=== PATIENT | male | born 1975 | race African-American/Black ===

== ENCOUNTER 2019-07-12 11:21 | Emergency (ER) | payer BC ==
[~2019-07-12] VITALS: Ht 180.3 cm; Wt 99.8 kg
[2019-07-12] MEDS ORDERED: TETRACAINE HCL 0.5% OPHT DROP 2 ML BOTTLE ONE (11:31)
[2019-07-12] MEDS ORDERED: FLUORESCEIN SODIUM 1 MG STRIP ONE (11:32)
[2019-07-12] MEDS ORDERED: ACETAMINOPHEN ES 500 MG TABLET ONE (11:42)
[2019-07-12] MEDS ORDERED: ACETAMINOPHEN ES 500 MG TABLET PO ONE (11:45)
[2019-07-12] MEDS ORDERED: TETRACAINE HCL 0.5% OPHT DROP 2 ML BOTTLE OP ONE (11:45)
[2019-07-12] MEDS ORDERED: FLUORESCEIN SODIUM 1 MG STRIP OP ONE (11:45)
--- NOTE | 2019-07-12 11:45 | NUR ---
Patient was seen by MD. Visual acuity done. Medication given as ordered. DC and follow up instructions given and explained to patient who states he understands all instructions.
== END 2019-07-12 11:55 | disposition home or self-care (01) ==
LOC: ER 11:21
DX: S05.02XA Injury of conjunctiva and corneal abrasion without foreign body, left eye, initial encounter (principal); X58.XXXA Exposure to other specified factors, initial encounter; Y93.89 Activity, other specified; Y92.89 Other specified places as the place of occurrence of the external cause; Y99.8 Other external cause status
CPT/HCPCS: A4663; A9150

== ENCOUNTER 2021-09-22 08:20 | Emergency (ER) | payer BC ==
[~2021-09-22] VITALS: Ht 180.3 cm; Wt 99.8 kg
--- NOTE | 2021-09-22 08:30 | NUR ---
Dr Latif at the bedside for MSE.
[2021-09-22 08:56] LABS: HEMATOCRIT 41.8 % (36.7-47.1); MEAN CORPUSCULAR HEMOGLOBIN 32.2 uug (23.8-33.4); MEAN CORPUSCULAR VOLUME 94.9 fL (73.0-96.2); PLATELET COUNT (AUTO) 350 K/uL (152-348)
[2021-09-22 09:04] LABS: CREATININE 0.9 mg/dL (0.6-1.3); POTASSIUM 4.3 mmol/L (3.5-5.1)
[2021-09-22 09:21] LABS: BILIRUBIN,DIRECT 0.2 mg/dL (0.0-0.2); BILIRUBIN,TOTAL 0.7 mg/dL (0.2-1.0); TOTAL PROTEIN, SERUM 8.9 g/dL (6.4-8.2)
--- NOTE | 2021-09-22 09:30 | NUR ---
Patient discharged to home in stable condition. Written and verbal after care instructions given. Patient verbalizes understanding of instructions. Stressed follow up or return to ER for worsening s/s.
[2021-09-22 09:31] VITALS: BP 112/60
== END 2021-09-22 09:32 | disposition home or self-care (01) ==
LOC: ER 08:22
DX: R07.9 Chest pain, unspecified (principal)
CPT/HCPCS: 36415; 70030-TC; 71045; 85025; 93005; A4663